=== PATIENT | male | born 1955 ===

== ENCOUNTER → 2017-03-26 | Outpatient (CLI) | payer OTHER ==
[2017-03-26 08:17] LABS: BILIRUBIN,URINE NEGATIVE (NEG); CLARITY,URINE CLEAR (CLEAR); COLOR,URINE YELLOW; GLUCOSE, URINE (UA) NEGATIVE (NEG); NITRATE,URINE NEGATIVE (NEG); OCCULT BLOOD,URINE NEGATIVE (NEG); PROTEIN,URINE NEGATIVE (NEG); UROBILINOGEN,URINE 0.2 EU/dL (0.2)
[2017-03-26 08:27] LABS: CREATININE, URINE 199.4 MG/DL (15-500)
[2017-03-26 09:39] LABS: BLOOD UREA NITROGEN 18 mg/dL (7-22); CALCIUM 9.8 mg/dL (8.7-10.7); EST GLOMERULAR FILTRATION > 60 (>60 ml/min/1.73m(2)); SERUM ALBUMIN 4.5 g/dL (3.5-4.8)
--- NOTE | 2017-03-26 09:41 | DI ---
XR SHOULDER MIN 2VW,03/26/2017 7:37 AM: Clinical History: Right shoulder pain and degenerative joint disease. Previous Exam: None at this facility. Findings: Multiple views of the right shoulder are obtained, and demonstrate anatomic alignment without fractur es. There is metallic density noted within the right chest wall. Surrounding soft tissues are unremarkable. Impression: Normal right shoulder.
--- NOTE | 2017-03-26 09:42 | DI ---
XR FOOT COMPLETE MIN 3VW,03/26/2017 7:37 AM: Clinical History: Left foot pain Previous Exam: March 26, 2017 Findings: 3 views of the left foot are obtained, and demonstrate anatomic alignment without fractures. Surround ing soft tissues are unremarkable. There is mild enthesopathy at the insertion and Achilles tendon. Impression: No fracture.
--- NOTE | 2017-03-26 09:43 | DI ---
XR FOOT COMPLETE MIN 3VW,03/26/2017 7:38 AM: Clinical History: Right foot pain Previous Exam: None at this facility. Findings: 3 views of the right foot are obtained, and demonstrate anatomic alignment without fracture. Surround ing soft tissues are unremarkable. Impression: No fractures.
[2017-03-26 11:23] LABS: URINE SAMPLE TYPE CLEAN CATCH URINE
== END ==
LOC: LAB 07:29
PROVIDERS: ATTEND Internal Medicine Cardiovascular Disease
DX: N28.1 Cyst of kidney, acquired (principal); N18.9 Chronic kidney disease, unspecified; M79.672 Pain in left foot; M79.671 Pain in right foot; M19.011 Primary osteoarthritis, right shoulder; M25.774 Osteophyte, right foot; M25.775 Osteophyte, left foot
CPT/HCPCS: 36415; 73030; 73630; 80053; 81003; 82043